=== PATIENT | female | born 1935 | race Hispanic/Latino ===

== ENCOUNTER → 2016-07-31 | Outpatient (CLI) | payer OTHER | LOC: MMPC 11:11 | PROVIDERS: ATTEND Internal Medicine | DX: E11.9 Type 2 diabetes mellitus without complications (principal); I10 Essential (primary) hypertension; N18.9 Chronic kidney disease, unspecified; Z95.1 Presence of aortocoronary bypass graft; E78.5 Hyperlipidemia, unspecified | CPT/HCPCS: 99214; G0463 ==